=== PATIENT | male | born 1980 | race Caucasian/White ===

== ENCOUNTER 2017-02-16 11:47 | Emergency (ER) | payer BC ==
[~2017-02-16] VITALS: Wt 73.1 kg
[2017-02-16] MEDS ORDERED: HYDR-906 PO (13:43)
--- NOTE | 2017-02-19 11:12 | EN ---
Date/Time of Note Date/Time of Note DATE: 02/19/17 TIME: 11:11 ER Progress Note Addendum, the patient's prescription was questioned by the pharmacy, [facility]. It appears that the patient is on small quantities of [place] for multiple different prescribers and facilities. OSMAN BROWN PA-C Feb 19, 2017 11:12
--- NOTE | 2017-02-24 04:28 | ERD ---
ER Documentation Chief Complaint Chief Complaint RIGHT GROIN PAIN, HX OF HERNIA HPI 36-year-old male presents with a chief complaint of right groin pain. History of hernia. Patient has appointment with GI surgeon next week. Has been taking [place] with minimal relief. Patient states that the hernia is reducible. Patient states that the pain has become unbearable. Patient is requesting pain medications to last him for the next week until his appointment with GI surgeon. Denies fever, chills, abdominal pain, nausea, vomiting, constipation, pain with Valsalva, or inability to reduce hernia. Patient has no other complaints and describes no other associated manifestations. Nursing notes have been reviewed and are consistent with history given. ROS All systems reviewed and are negative except as per history of present illness. Medications Home Meds Active Scripts Hydrocodone/Acetaminophen ([place] 5-325 Tablet) 1 Each Tablet, 1 TAB PO Q8 Y for PAIN, #20 TAB Prov:ROBERT PERES PA-C 02/16/17 PMhx/Soc Medical and Surgical Hx: pt denies Medical Hx, pt denies Surgical Hx Hx Alcohol Use: No Hx Substance Use: No Hx Tobacco Use: No Smoking Status: Never smoker Physical Exam Physical Exam Const: Well-appearing healthy 36-year-old male in NAD Head: Atraumatic Eyes: Normal Conjunctiva ENT: Normal External Ears, Nose and Mouth. Neck: Full range of motion..~ No meningismus. Resp: Clear to auscultation bilaterally Cardio: Regular rate and rhythm, no murmurs Abd: Soft and nondistended. Right inguinal hernia palpated and reduced with minimal effort. Moderate TTP. No skin abnormalities. No tenderness after reduction. Skin: No petechiae or rashes Back: No midline or flank tenderness Ext: No cyanosis, or edema Neur: Awake and alert Psych: Normal Mood and Affect Procedures/MDM Otherwise healthy 36-year-old male presents with signs and symptoms most consistent with right inguinal hernia. Hernia reduced in the emergency department. Medication given in the emergency department with relief of symptoms. Patient is requesting pain medication. Pain medication was prescribed; 20 [place]. I have little suspicion for strangulated, incarcerated hernia, appendicitis, or other acute abdomen. Patient is stable and appropriate for discharge. Case has been reviewed with my attending who agrees with assessment and plan. The patient will be given discharge instructions with return precautions. Departure Diagnosis: Primary Impression: Hernia Condition: Stable Patient Instructions: Hernia (Inguinal, Ventral, Umbilical) Additional Instructions: Follow-up with specialist as scheduled on February 22. Return the the emergency department immediately if symptoms worsen or change. If you have any questions regarding medications, ask your pharmacist or us before you leave. If any adverse reactions occur while taking your medications, discontinue the treatment and return to the emergency department immediately. ROBERT PERES PA-C Feb 24, 2017 04:28
== END 2017-02-16 14:28 | disposition home or self-care (01) ==
LOC: FTE 11:47
DX: K40.90 Unilateral inguinal hernia, without obstruction or gangrene, not specified as recurrent (principal)
CPT/HCPCS: 99283

== ENCOUNTER 2017-03-06 07:22 | Day surgery (SDC) | payer BC ==
[2017-03-06] VITALS (12 sets, daily range): BP systolic 138–163; BP diastolic 18–93; PULSE 76–96; RESP 16–54; Ht 167.6 cm; Wt 72.5 kg
[~2017-03-06] VITALS: Ht 167.6 cm; Wt 72.5 kg
[~2017-03-06 07:22] MED LIST: CEFAZOLIN 1 GM/50 ML (PMX) 50 ML IVPB SCH; HYDR-906 PO; SOD CHLORIDE 0.9% 1,000 ML IV SCH
[2017-03-06 08:19] LABS: BASOPHIL # 0.1 10^3/ul (0.0-0.1); EOSINOPHILS # 0.3 10^3/ul (0.0-0.5); EOSINOPHILS % 3.9 % (0.0-7.0); HEMATOCRIT 42.3 % (42.0-52.0); LYMPHOCYTES # 3.1 10^3/ul (0.8-2.9); LYMPHOCYTES % 44.4 % (15.0-51.0); MEAN CORPUSCULAR HEMOGLOBIN 29.5 pg (29.0-33.0); MEAN CORPUSCULAR HGB CONC 35.5 g/dl (32.0-37.0); MEAN CORPUSCULAR VOLUME 83.3 fl (82.0-101.0); MEAN PLATELET VOLUME 11.6 fl (7.4-10.4); MONOCYTE # 0.5 10^3/ul (0.3-0.9); MONOCYTES % 7.2 % (0.0-11.0); NEUTROPHILS % 43.4 % (39.0-77.0); PLATELET COUNT 284 10^3/UL (140-415); RED BLOOD COUNT 5.08 10^6/ul (4.70-6.10); RED CELL DISTRIBUTION WIDTH 11.9 % (11.5-14.5)
[2017-03-06 08:39] LABS: INR 0.97
[2017-03-06 08:40] LABS: PARTIAL THROMBOPLASTIN TIME 30.2 Sec (25.0-35.0)
[2017-03-06 08:55] LABS: ALBUMIN 4.6 g/dl (3.3-4.9); ALBUMIN/GLOBULIN RATIO 1.7; BILIRUBIN,INDIRECT 0.5 mg/dl (0-1.1); BILIRUBIN,TOTAL 0.5 mg/dl (0.2-1.3); TOTAL PROTEIN 7.3 g/dl (6.1-8.1)
[2017-03-06 08:56] LABS: CALCIUM 9.7 mg/dl (8.4-10.2); CREATININE 0.88 mg/dl (0.61-1.24)
[2017-03-06] MEDS ORDERED: BUPIVACAINE 0.5%/EPI (SDV) 30 ML INJ ONE (10:00)
[2017-03-06] MEDS ORDERED: POLYMYXIN/BACITRACIN 1L IRRIG ONE (10:00)
[2017-03-06] MEDS ORDERED: MIDAZOLAM 1 MG/ML 2 ML INJ ONE (10:20)
[2017-03-06] MEDS ORDERED: FENTAnyl 50 MCG/ML VIAL ONE (10:30)
[2017-03-06] MEDS ORDERED: LIDOCAINE 2% (SDV) 5 ML INJ ONE (10:48)
[2017-03-06] MEDS ORDERED: PROPOFOL 20 ML ONE (10:48)
[2017-03-06] MEDS ORDERED: SUGAMMADEX SODIUM 200 MG/2 ML VIAL IV ONE (10:48)
[2017-03-06] MEDS ORDERED: CEFAZOLIN 1 GM INJ ONE (10:48)
[2017-03-06] MEDS ORDERED: SUCCINYLCHOLINE CHLORIDE 100 MG/5 ML SYG IV ONE (10:48)
[2017-03-06] MEDS ORDERED: ROCURONIUM 50 MG INJ ONE (10:48)
[2017-03-06] MEDS ORDERED: MEPERIDINE 25 MG INJ IV PRN (11:00)
[2017-03-06] MEDS ORDERED: ONDANSETRON 4 MG INJ IV PRN (11:00)
[2017-03-06] MEDS ORDERED: METOCLOPRAMIDE 10 MG INJ IV PRN (11:00)
[2017-03-06] MEDS ORDERED: DIPHENHYDRAMINE 50 MG INJ IV PRN (11:00)
[2017-03-06] MEDS ORDERED: HYDROmorphONE (0.2 MG/ML) 10ML SYG IV PRN ×3 (11:00)
[2017-03-06] MEDS ORDERED: FENTAnyl 50 MCG/ML VIAL IV PRN ×2 (11:00)
--- NOTE | 2017-03-06 11:56 | SIPON ---
Date/Time of Note Date/Time of Note DATE: 03/06/17 TIME: 11:55 Operative Report Preoperative Diagnosis Incarcerated right inguinal hernia Postoperative Diagnosis Same Operation/Procedure Performed Right inguinal herniorrhaphy with mesh Surgeon see signature line energy assistant None Anesthesia: general Estimated blood loss: 10 - 50 ml's Transfusion Required none Specimen Hernia sac Grafts/Implants none Complications none KAYODE MORENO MD Mar 06, 2017 11:56
--- NOTE | 2017-03-06 12:02 | OPR ---
DATE OF OPERATION: 03/06/2017 PREOPERATIVE DIAGNOSIS: Incarcerated right inguinal hernia. POSTOPERATIVE DIAGNOSIS: Incarcerated right inguinal hernia. OPERATION PERFORMED: Right inguinal herniorrhaphy with mesh. ANESTHESIA: General. ANESTHESIOLOGIST: Esau Hylton MD SURGEON: Lloyd Fitzpatrick MD PROFESSOR OF ENGINEERING: None. INDICATIONS FOR PROCEDURE: The patient is a 36-year-old male who presented with a longstanding symp tomatic right inguinal hernia. He requested repair. He consented and was scheduled for surgery. DESCRIPTION OF PROCEDURE: The patient was brought to the operating theater, placed under general an esthesia. The right groin was shaved, prepped and draped in usual sterile fashion. An approximatel y 5-6 cm incision was made transversely and the approximate locations of the internal and external i nguinal rings. Subcutaneous tissue was dissected with cautery down through Deepa fascia. The apon eurosis of the external oblique was identified and incised in the direction of its fibers through th e external ring. With blunt dissection, medial and lateral flaps were developed. The ilioinguinal and iliohypogastric nerves were identified and kept out of harm's way. The spermatic cord was then elevated off of the pubic tubercle, and a 1/4-inch [place] drain was placed around it. Inspection o f the floor did not reveal evidence of a direct hernia; however, inspection of the cord revealed a r elatively large indirect hernia sac. It was meticulously dissected off the cord structures down to its base at the internal ring. The sac was opened. A small amount of intra-abdominal contents were returned to the abdomen. The sac was then ligated at its base with a 2-0 PDS suture, transected an d sent for permanent pathologic analysis. At this point, an ilioinguinal and iliohypogastric nerve block was performed with 0.5% [place] local anesthetic in the standard fashion. An onlay mesh patc h was then cut to size, laid over the inguinal floor. A slot was cut superiorly to facilitate cord transgression. The mesh patch was then sutured laterally to the inguinal ligament with a running 2- 0 Prolene suture and medially to the abdominal wall fascia, also with a running 2-0 Prolene suture. The slot which was cut superiorly was then reapproximated with several interrupted 2-0 Prolene sutu res. The wound was irrigated. Minimal bleeding was controlled with cautery. The ilioinguinal and iliohypogastric nerves were placed back in their normal anatomic location within the inguinal canal, and the aponeurosis of the external oblique was then reapproximated with a running 3-0 Vicryl sutur e in a standard fashion. The wound was irrigated with Betadine, and the skin was then reapproximate d with skin leno. The patient tolerated procedure well. The estimated blood loss was 20 mL. Th ere were no complications and the patient was transported in stable condition to the recovery room. Dictated By: LLOYD HUNTER/PINEDA Conf#: [id number] DID#: [id number]
[2017-03-06] MEDS: FENTAnyl 50 MCG/ML VIAL IV PRN ×2 (12:45→12:58)
[2017-03-06] MEDS ORDERED: HYDROCODONE/APAP (10/325) TAB PO ONE (14:30)
== END 2017-03-06 14:40 | disposition home or self-care (01) ==
LOC: SUR 07:22 → SDS 07:22 → SUR 14:40
PROVIDERS: ATTEND Surgery Surgical Oncology
DX: K40.90 Unilateral inguinal hernia, without obstruction or gangrene, not specified as recurrent (principal)
CPT/HCPCS: 49507; 80053; 85025; 85610; 85730; 88302; C1781; J0690; J2175; J2250; J2405; J3010; J7030; Z7512; Z7610